=== PATIENT | female | born 1960 | race Caucasian/White ===

== ENCOUNTER 2016-03-14 00:20 | Emergency (ER) | payer OTHER ==
[~2016-03-14] VITALS: Ht 172.7 cm; Wt 61.2 kg
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
--- NOTE | 2016-03-14 02:15 | RADIOLOGY REPORT ---
EXAMINATION: PA AND LATERAL CHEST RADIOGRAPH AND 3 VIEWS OF THE RIGHT RIBS CLINICAL INFORMATION: Fall with right anterolateral inferior rib pain. COMPARISON: None available. FINDINGS: Symmetric lung inflation. Central vascular congestion without overt edema. Possible trace pleural effusions. Mild bibasilar atelectasis. Cardiac silhouette size is normal. There are mildly displaced fractures involving the posterolateral aspects of the right fifth, sixth, and seventh ribs. A tiny right pneumothorax is appreciated, best seen on the dedicated right AP rib view. IMPRESSION: - There are mildly displaced fractures involving the posterolateral aspects of the right fifth, sixth, and seventh ribs. A tiny right pneumothorax is appreciated, best seen on the dedicated right AP rib view. - Central vascular congestion and possible trace pleural effusions with adjacent basilar atelectasis. Findings discussed with Marcellus Prajapati M.D. at 2:11 AM on 03/14/2016.
[2016-03-14 08:09] VITALS: BP 96/51
[2016-03-14] MEDS ORDERED: ANASTROZOLE1 M1 PO (08:12)
--- NOTE | 2016-03-14 08:18 | RADIOLOGY REPORT ---
EXAMINATION: XR CHEST CLINICAL INFORMATION: Follow-up pneumonia. COMPARISON: Prior chest radiographs dated 03/04/2016. TECHNIQUE: PA and lateral views of the chest were obtained. FINDINGS: The heart, great vessels and mediastinum are stable. There is pulmonary vascular congestion, without overt pulmonary edema. The heart size is at the upper limits of normal. There is mild left base airspace disease, with an obscured left diaphragm. No definite pneumothorax or pleural effusion is presently seen. Right fifth through seventh rib fractures are again seen. IMPRESSION: 1. Right fifth through seventh rib fractures are redemonstrated. A tiny right apical pneumothorax is less well appreciated than on prior. 2. There is mild left base airspace disease. 3. There is pulmonary vascular congestion, without overt pulmonary edema.
[2016-03-14] MEDS ORDERED: IBUPROFEN800 M1 PO (08:53)
[2016-03-14] MEDS ORDERED: VIBRAMYCIN100 MG PO (08:53)
[2016-03-14] MEDS ORDERED: PERCOCET 5-3251 EACH PO (08:53)
== END 2016-03-14 09:09 ==
LOC: ERH 00:20
DX: S22.41XA Multiple fractures of ribs, right side, initial encounter for closed fracture (principal); W18.2XXA Fall in (into) shower or empty bathtub, initial encounter
CPT/HCPCS: 71100-RT; 96372; J3101